=== PATIENT | female | born 1990 | race African-American/Black ===

== ENCOUNTER 2017-07-19 16:05 | Emergency (ER) | payer MEDICAID ==
[~2017-07-19] VITALS: Ht 165.1 cm; Wt 63.5 kg
[2017-07-19 16:46] VITALS: BP 119/77
== END 2017-07-19 17:00 | disposition home or self-care (01) ==
LOC: ER 16:10
DX: J02.9 Acute pharyngitis, unspecified (principal); I88.9 Nonspecific lymphadenitis, unspecified